=== PATIENT | male | born 1950 | race Asian ===

== ENCOUNTER → 2023-12-13 | Outpatient (CLI) | payer OTHER | END | disposition home or self-care (01) | LOC: RADMN 10:30 | PROVIDERS: ATTEND Chiropractor | DX: M17.0 Bilateral primary osteoarthritis of knee (principal); M25.762 Osteophyte, left knee; M25.761 Osteophyte, right knee; M25.462 Effusion, left knee; M25.461 Effusion, right knee | CPT/HCPCS: 73562-TC ==